=== PATIENT | female | born 1945 | race Caucasian/White ===

== ENCOUNTER → 2024-02-10 08:22 | Outpatient (REF) | payer MEDICARE, OTHER, SELFPAY | LOC: RCS 08:22 | PROVIDERS: ATTENDING PHYSICIAN Family Medicine | DX: R00.2 Palpitations (principal) | CPT/HCPCS: 93225; 93226 ==

== ENCOUNTER → 2024-03-16 09:10 | Outpatient (REF) | payer MEDICARE, OTHER, SELFPAY ==
[2024-03-16 10:07] LABS: % Basophils 0.7 % (0-2); % Eosinophils 3.3 % (0-6); % Immature Granulocytes 0.8 % (0-0.5); % Lymphocytes 34.8 % (20.5-51.1); % Monocytes 7.7 % (1.7-9.3); % Neutrophils 52.7 % (42.2-75.2); Absolute Basophils 0.1 10^3/uL (0-0.2); Absolute Eosinophils 0.2 10^3/uL (0-0.7); Absolute Immature Granulocytes 0.1 10^3/uL (0-0.05); Absolute Lymphocytes 2.5 10^3/uL (1.2-3.4); Absolute Monocytes 0.6 10^3/uL (0.1-0.6); Absolute Neutrophils 3.8 10^3/uL (1.4-6.5); Hematocrit 39.6 % (37.0-47.0); Mean Corp Hgb Conc. 32.8 g/dL (33.0-37.0); Mean Corpuscular Volume 88.2 fL (81.0-99.0); Mean Platelet Volume 10.6 fL (7.4-10.4); Nucleated Red Blood Cells % 0 %; Platelet Count 273 10^3/uL (130-400); Red Blood Cell Count 4.49 10^6/uL (4.20-5.40); White Blood Cell Count 7.2 10^3/uL (4.8-10.8)
[2024-03-16 10:45] LABS: ALT (SGPT) 17 U/L (0-35); AST (SGOT) 24 U/L (14-36); Albumin 4.3 g/dl (3.5-5.0); Alkaline Phosphatase 80 U/L (38-126); Blood Urea Nitrogen 18 mg/dl (7-17); Calcium 10.2 mg/dl (8.4-10.2); Carbon Dioxide 27 mmol/L (22-30); Chloride 108 mmol/L (98-107); Glucose 92 mg/dl (70-99); HDL Cholesterol 49 mg/dl; LDL Cholesterol, Calculated 108 mg/dl; Potassium 4.6 mmol/L (3.5-5.1); Sodium 141 mmol/L (135-145); Total Bilirubin 0.7 mg/dl (0.2-1.3); Total Cholesterol 191 mg/dl (50-199); Triglyceride 171 mg/dl (10-149); Very Low Density Lipoprotein 34 mg/dl (0-30); eGFR > 60.00
[2024-03-16 10:56] LABS: Vitamin D, 25-OH*** 28.8 ng/mL (30-80)
[2024-03-16 11:09] LABS: TSH 0.71 uIU/ml (0.47-4.68)
[2024-03-16 13:21] LABS: Glycohemoglobin (HgbA1c) 5.8 % (4.0-5.6)
== END ==
LOC: REG 09:10
PROVIDERS: ATTENDING PHYSICIAN Family Medicine; FAMILY PHYSICIAN Internal Medicine Cardiovascular Disease
DX: R73.03 Prediabetes (principal); E03.8 Other specified hypothyroidism; I11.9 Hypertensive heart disease without heart failure; E78.2 Mixed hyperlipidemia; E55.9 Vitamin D deficiency, unspecified
CPT/HCPCS: 36415; 80053; 80061; 82306; 83036; 84443; 85025

== ENCOUNTER → 2024-03-19 13:34 | Outpatient (REF) | payer MEDICARE, OTHER, SELFPAY | LOC: WDC 13:34 | PROVIDERS: ATTENDING PHYSICIAN Obstetrics & Gynecology Gynecology; FAMILY PHYSICIAN Family Medicine | DX: Z12.31 Encounter for screening mammogram for malignant neoplasm of breast (principal) | CPT/HCPCS: 77063; 77067 ==

== ENCOUNTER → 2024-05-31 09:25 | Outpatient (REF) | payer MEDICARE, OTHER, SELFPAY ==
[2024-05-31 12:11] LABS: ALT (SGPT) 29 U/L (0-35); AST (SGOT) 25 U/L (14-36); Albumin 4.6 g/dl (3.5-5.0); Alkaline Phosphatase 81 U/L (38-126); Blood Urea Nitrogen 20 mg/dl (7-17); Calcium 10.3 mg/dl (8.4-10.2); Carbon Dioxide 28 mmol/L (22-30); Chloride 103 mmol/L (98-107); Glucose 96 mg/dl (70-99); HDL Cholesterol 52 mg/dl; LDL Cholesterol, Calculated 134 mg/dl; Sodium 141 mmol/L (135-145); Total Bilirubin 0.8 mg/dl (0.2-1.3); Total Cholesterol 225 mg/dl (50-199); Total Protein 7.3 g/dl (6.3-8.2); Triglyceride 197 mg/dl (10-149); Very Low Density Lipoprotein 39 mg/dl (0-30); eGFR > 60.00
[2024-05-31 12:22] LABS: Vitamin D, 25-OH*** 45.3 ng/mL (30-80)
== END ==
LOC: REG 09:25
PROVIDERS: ATTENDING PHYSICIAN Family Medicine; REFERRING PHYSICIAN Internal Medicine Cardiovascular Disease
DX: E78.2 Mixed hyperlipidemia (principal); E55.9 Vitamin D deficiency, unspecified
CPT/HCPCS: 36415; 80053; 80061; 82306

== ENCOUNTER 2024-06-02 17:31 | Emergency (ER) | payer MEDICARE, OTHER, SELFPAY ==
[2024-06-02 17:36] VITALS: BP 127/71
--- NOTE | 2024-06-02 18:50 | ED.GENMED ---
History of Present Illness
<Hailey Rodríguez PA-C - Last Filed: 06/02/24 23:55>
General
Chief Complaint: Abdominal Symptoms
Source: patient
Exam Limitations: none
Time Seen by Provider: 06/02/24 18:44
Nursing documentation reviewed up to this point in time: agreed with
History of Present Illness
History of Present Illness:
Patient is a 78-year-old female with history of hypertension, hyperlipidemia presenting to the emergency department due to findings of diverticulitis seen on outpatient CT scan. Patient states she initially started with lower abdominal pain on
Thursday which has been relatively constant and worsening slightly since. She saw her primary care provider today where she referred her for an outpatient CAT scan and lab work. Patient was called back later today stating her CAT scan displayed
uncomplicated diverticulitis. Patient did have an elevated white count of 20,000 and PCP recommended patient be evaluated the emergency department. Patient denies any associated fever, chills, diarrhea, or constipation. No urinary symptoms.
Patient has felt nauseous although no episodes of vomiting.
Past History
<Hailey Rodríguez PA-C - Last Filed: 06/02/24 23:55>
Past History
ED Past Medical History: HTN, Hypercholesterolemia and Other (Cervical radiculopathy)
Social History
Tobacco: Non-smoker
Personal:
Review of Systems
<Hailey Rodríguez PA-C - Last Filed: 06/02/24 23:55>
Review of Systems
Allergies reviewed?: Yes
All Other Systems: ROS reviewed and negative except as documented in HPI and ROS
Phy Exam
<Hailey Rodríguez PA-C - Last Filed: 06/02/24 23:55>
Physical Exam
Physical Exam:
Vitals: Patient's vital signs are stable. Afebrile
General: Patient is well appearing, no acute distress. Nontoxic-appearing
Skin: Warm and dry, no rashes or lesions
Head: Normocephalic, atraumatic
Eyes: Sclera nonicteric. EOMs intact. No nystagmus.
Throat: Protecting airway
Neck: Normal ROM, no cervical spine tenderness, no meningismus
Cardiac: Regular rate and rhythm, no murmurs.
Pulm: Normal respiratory effort, no wheezes, rales, rhonchi heard on exam.
Abdomen: Abdomen soft. Mild abdominal tenderness in left lower quadrant. No rebound tenderness or guarding. No CVA tenderness
Extremities: No evidence of cyanosis or edema. Great distal pulses
Neuro: Grossly intact.
Psychiatric: Normal affect.
Course
<Hailey Rodríguez PA-C - Last Filed: 06/02/24 23:55>
Orders/Labs/Results
Orders:
Orders
06/02/24 19:01
Ondansetron Orally Disint [Zofran Odt (Orally Disintegrating)] 4 mg PO NOW STA
06/02/24 19:50
Piperacillin/Tazo 3.375 Gram [Zosyn] 3.375 gram in 50 ml IV NOW
Vital Signs
Initial and Last Documented VS:
Initial Vital Signs
Temp Pulse Resp BP Pulse Ox
98.0 F 102 16 127/71 98
06/02/24 17:36 06/02/24 17:36 06/02/24 17:36 06/02/24 17:36 06/02/24 17:36
Last Documented Vital Signs
Temp Pulse Resp BP Pulse Ox
98.0 F 90 17 127/63 96
06/02/24 17:36 06/02/24 20:31 06/02/24 20:31 06/02/24 20:31 06/02/24 20:31
<Adriano Gandhi DO - Last Filed: 06/03/24 03:12>
Orders/Labs/Results
Orders:
Orders
06/02/24 19:01
Ondansetron Orally Disint [Zofran Odt (Orally Disintegrating)] 4 mg PO NOW STA
06/02/24 19:50
Piperacillin/Tazo 3.375 Gram [Zosyn] 3.375 gram in 50 ml IV NOW
Vital Signs
Initial and Last Documented VS:
Initial Vital Signs
Temp Pulse Resp BP Pulse Ox
98.0 F 102 16 127/71 98
06/02/24 17:36 06/02/24 17:36 06/02/24 17:36 06/02/24 17:36 06/02/24 17:36
Last Documented Vital Signs
Temp Pulse Resp BP Pulse Ox
98.0 F 90 17 127/63 96
06/02/24 17:36 06/02/24 20:31 06/02/24 20:31 06/02/24 20:31 06/02/24 20:31
<Hailey Rodríguez PA-C - Last Filed: 06/02/24 23:55>
MDM/Problems Addressed
Differential Diagnosis Includes:
Not limited to: Acute diverticulitis, complicated diverticulitis including bowel perforation or abscess
MDM/Problems Addressed:
78-year-old female presenting due to diverticulitis found on outpatient CT scan and associated leukocytosis. Patient reports lower abdominal pain x 4 days with associated nausea. No fevers or vomiting. Patient very mildly tachycardic on initial
arrival to emergency department although heart rate normalized by my evaluation. Otherwise vital signs are stable. Patient is afebrile. Physical exam as above. Patient is very well-appearing, in no apparent distress. She is conversational and
nontoxic-appearing. Abdomen is soft with mild tenderness in left lower quadrant without rebound tenderness or guarding. Did review patient's lab work and CT performed today which showing uncomplicated diverticulitis. Despite patient's
leukocytosis -she is well-appearing with well-managed pain not requiring any pain management. She is afebrile with stable vital signs. No clear indication for admission for IV antibiotics. Shared decision making with patient. Will give 1 dose of
IV Zosyn in emergency department and then discharged home with p.o. Augmentin. Patient was given dose of oral Zofran emergency department due to nausea and tolerated water by mouth.
Stable for discharge with close return precautions. Recommend clear liquid diet and advancing as tolerated. Patient will follow with primary care next week. Patient seen with attending physician.
Chronic conditions affecting care:
Hypertension, diverticulosis
Acute Exacerbation and/or Progression of Chronic Illness:
Acute uncomplicated diverticulitis
<Hailey Rodríguez PA-C - Last Filed: 06/02/24 23:55>
*Pulse Oximetry
Patient hypoxic: no
*EKG
Interpreted by ED Provider?: NA
*[employer] Interpretation
Rate: normal
Interpretation: normal
Heart Rate: 92
Rhythm: sinus
*Critical Care Note
Total Time (30-74mins, 75-104mins- exclusive of procedures): Not Applicable
Data Reviewed
Review of Other/Old Records Reveals: Labs (CBC and CMP performed today outpatient which show a leukocytosis of 20.35. CMP without any clinically significant abnormalities) and Radiology Studies (CT abdomen pelvis performed today outpatient which
show acute uncomplicated diverticulitis of sigmoid colon.)
ED Attending Note
<Hailey Rodríguez PA-C - Last Filed: 06/02/24 23:55>
-
Portions of this chart may have been created with voice recognition software.� Occasional wrong word or��sound alike� substitutions may have occurred due to the inherent limitations of voice recognition software.
<Adriano Gandhi DO - Last Filed: 06/03/24 03:12>
ED Attending Note
Patient seen and examined by attending physician: Yes
I performed the substantive portion of visit, reviewed & personally made and approve the management plan that is documented in note by myself or ARELY.: Yes
ED Attending Note:
Outpatient management is reasonable for diverticulitis. Patient agrees to return for any worsening symptoms.
Discharge Plan
Departure
Patient Disposition: Home (Routine Discharge)
Date of Disposition: 06/02/24
Time of Disposition: 20:31
Patient with high blood pressure during this ER visit?: No
Condition: Good
Covid-19: Not Applicable
Discharge Problem:
Acute diverticulitis
Instructions: Low Fiber Diet, Diverticulitis (DC), Clear Liquid Diet
Prescriptions:
New
amoxicillin-pot clavulanate 875-125 mg tablet
1 tab PO BID 10 Days Qty: 20 0RF
ondansetron 4 mg tablet,disintegrating
4 mg PO Q8H PRN (Reason: nausea and vomiting) Qty: 10 0RF
No Action
cyanocobalamin (vitamin B-12) [Vitamin B-12] 1,000 mcg Tablet
1,000 mcg PO DAILY
levothyroxine [Synthroid] 88 mcg Tablet
88 mcg PO DAILY
simvastatin 20 mg Tablet
20 mg PO HS
losartan 25 mg Tablet
25 mg PO HS
PreserVision AREDS-2 250-90-40-1 mg Capsule
1 tab PO BID
metoprolol succinate 25 mg Tablet Extended Release 24 Hr
25 mg PO HS
coenzyme Q10 [CoQ-10] 100 mg Capsule
100 mg PO DAILY
Systane (PF) 0.4-0.3 % Dropperette
1 drp BOTH EYES Q6HPRN PRN (Reason: dry eyes)
cholecalciferol (vitamin D3) [Vitamin D3] 25 mcg (1,000 unit) Tablet
1,500 unit PO DAILY
magnesium oxide 400 mg magnesium Tablet
400 mg PO DAILY
Referrals:
Inez Serra MD [Family Provider] - Follow up in 5-7 days
Activity Restrictions/Additional Instructions:
Return to the emergency department with any fevers, chills, worsening abdominal pain, intractable nausea/vomiting, intractable pain, worsening in current symptoms, or any other concerns
-A prescription has been sent to your pharmacy for an antibiotic. You should take this twice a day for the next 10 days. You should start this in the morning. You can take Zofran up to every 8 hours as needed for persistent nausea/vomiting.
-You can take Tylenol and/or Motrin as needed for any pain.
-It is important to stay well-hydrated. You should follow a clear liquid diet for the next 2 days and slowly advance to low fiber as tolerated.
-Follow-up with your primary care within the week for further evaluation/management
Monitor your symptoms closely and return to the emergency department any acute worsening/new symptoms or signs of worsening infection
Interventions
Interventions:
*General Assessment Last Done: 06/02/24 19:23
ED- Fall Risk Assessment Last Done: 06/02/24 19:22
*Nursing Disposition Last Done: 06/02/24 20:34
MD-Gisjjp-Olmfinjkdw Assessment Last Done: 06/02/24 19:22
Discharge Date and Time
Discharge Date/Time: 06/02/24 21:06
Print Language: SOUTH AFR[place]
[2024-06-02] MEDS: ZOFRAN ODT (ORALLY DISINTEGRATING) 4 MG PO (19:14)
[2024-06-02 19:21] VITALS: BP 127/63
[2024-06-02] MEDS: ZOSYN 50 IV (20:06)
[2024-06-02 20:31] VITALS: BP 127/63
== END 2024-06-02 21:06 | disposition home or self-care (01) ==
LOC: EMR 17:31
PROVIDERS: EMERGENCY PHYSICIAN Emergency Medicine; FAMILY PHYSICIAN Family Medicine
DX: K57.32 Diverticulitis of large intestine without perforation or abscess without bleeding (principal); I10 Essential (primary) hypertension; E78.5 Hyperlipidemia, unspecified
CPT/HCPCS: 96374; 99284; 36415; 74177; 80053; 83970; 85025; Q9967

== ENCOUNTER → 2024-06-10 12:01 | Outpatient (REF) | payer MEDICARE, OTHER, SELFPAY | LOC: REG 12:01 | PROVIDERS: ATTENDING PHYSICIAN Nurse Practitioner; FAMILY PHYSICIAN Family Medicine | DX: R19.5 Other fecal abnormalities (principal) | CPT/HCPCS: 87324; 87449 ==

== ENCOUNTER → 2024-07-08 10:04 | Outpatient (REF) | payer MEDICARE, OTHER, SELFPAY ==
[2024-07-08 11:29] LABS: % Basophils 0.6 % (0-2); % Eosinophils 2.7 % (0-6); % Immature Granulocytes 0.6 % (0-0.5); % Lymphocytes 17.4 % (20.5-51.1); % Monocytes 7.1 % (1.7-9.3); % Neutrophils 71.6 % (42.2-75.2); Absolute Eosinophils 0.1 10^3/uL (0-0.7); Absolute Lymphocytes 0.9 10^3/uL (1.2-3.4); Absolute Monocytes 0.4 10^3/uL (0.1-0.6); Absolute Neutrophils 3.7 10^3/uL (1.4-6.5); Hematocrit 38.8 % (37.0-47.0); Hemoglobin 12.4 g/dL (12.0-16.0); Mean Corpuscular Hgb 29.7 pg (27.0-31.0); Mean Corpuscular Volume 92.8 fL (81.0-99.0); Mean Platelet Volume 11.6 fL (7.4-10.4); Nucleated Red Blood Cells % 0 %; Platelet Count 240 10^3/uL (130-400); Red Blood Cell Count 4.18 10^6/uL (4.20-5.40); Red Cell Dist. Width 13.2 % (11.5-14.5); White Blood Cell Count 5.2 10^3/uL (4.8-10.8)
== END ==
LOC: REG 10:04
PROVIDERS: ATTENDING PHYSICIAN Family Medicine
DX: K57.92 Diverticulitis of intestine, part unspecified, without perforation or abscess without bleeding (principal)
CPT/HCPCS: 36415; 85025

== ENCOUNTER → 2024-07-11 17:17 | Outpatient (REF) | payer MEDICARE, OTHER, SELFPAY | LOC: MRI 3T 17:17 | PROVIDERS: ATTENDING PHYSICIAN Nurse Practitioner; FAMILY PHYSICIAN Family Medicine | DX: R93.5 Abnormal findings on diagnostic imaging of other abdominal regions, including retroperitoneum (principal) | CPT/HCPCS: 74183; A9575 ==

== ENCOUNTER → 2024-08-11 06:16 | Day surgery (SDC) | payer MEDICARE, OTHER, SELFPAY | LOC: GI 06:16 | PROVIDERS: ATTENDING PHYSICIAN Specialist | DX: K57.30 Diverticulosis of large intestine without perforation or abscess without bleeding (principal); Z87.19 Personal history of other diseases of the digestive system | CPT/HCPCS: 45378 ==

== ENCOUNTER 2024-09-07 06:12 | Day surgery (SDC) | payer MEDICARE, OTHER, SELFPAY ==
[2024-09-07 07:33] VITALS: BMI 28.8
[2024-09-07 07:42] VITALS: BMI 28.8
[2024-09-07 10:11] VITALS: BP 141/65
[2024-09-07 10:15] VITALS: BP 132/63
[2024-09-07 10:30] VITALS: BP 132/58
[2024-09-07 10:46] VITALS: BP 148/69
== END 2024-09-07 11:49 | disposition home or self-care (01) ==
LOC: GI 06:12
PROVIDERS: ATTENDING PHYSICIAN Internal Medicine Gastroenterology
DX: C49.A2 Gastrointestinal stromal tumor of stomach (principal); K20.90 Esophagitis, unspecified without bleeding; D17.5 Benign lipomatous neoplasm of intra-abdominal organs; K31.89 Other diseases of stomach and duodenum; R93.3 Abnormal findings on diagnostic imaging of other parts of digestive tract
CPT/HCPCS: 43238; 43239; 88172; 88173; 88305; 88341; 88342; 88360

== ENCOUNTER → 2024-12-07 08:33 | Outpatient (REF) | payer MEDICARE, OTHER, SELFPAY | LOC: RAD 08:33 | PROVIDERS: ATTENDING PHYSICIAN Internal Medicine Rheumatology; FAMILY PHYSICIAN Family Medicine | DX: M81.0 Age-related osteoporosis without current pathological fracture (principal); Z13.820 Encounter for screening for osteoporosis | CPT/HCPCS: 77080 ==

== ENCOUNTER → 2024-12-27 09:21 | Outpatient (REF) | payer MEDICARE, OTHER, SELFPAY ==
[2024-12-27 10:26] LABS: % Basophils 0.5 % (0-2); % Eosinophils 1.9 % (0-6); % Immature Granulocytes 0.5 % (0-0.5); % Lymphocytes 28.7 % (20.5-51.1); % Monocytes 8.8 % (1.7-9.3); % Neutrophils 59.6 % (42.2-75.2); Absolute Eosinophils 0.1 10^3/uL (0-0.7); Absolute Lymphocytes 2.2 10^3/uL (1.2-3.4); Absolute Monocytes 0.7 10^3/uL (0.1-0.6); Absolute Neutrophils 4.5 10^3/uL (1.4-6.5); Hematocrit 39.9 % (37.0-47.0); Hemoglobin 12.8 g/dL (12.0-16.0); Mean Corp Hgb Conc. 32.1 g/dL (33.0-37.0); Mean Corpuscular Volume 90.3 fL (81.0-99.0); Mean Platelet Volume 10.7 fL (7.4-10.4); Nucleated Red Blood Cells % 0 %; Platelet Count 273 10^3/uL (130-400); Red Blood Cell Count 4.42 10^6/uL (4.20-5.40); Red Cell Dist. Width 13.2 % (11.5-14.5); White Blood Cell Count 7.5 10^3/uL (4.8-10.8)
[2024-12-27 11:06] LABS: ALT (SGPT) 16 U/L (0-35); AST (SGOT) 21 U/L (14-36); Albumin 4.2 g/dl (3.5-5.0); Alkaline Phosphatase 78 U/L (38-126); Blood Urea Nitrogen 14 mg/dl (7-17); Calcium 9.9 mg/dl (8.4-10.2); Carbon Dioxide 28 mmol/L (22-30); Chloride 106 mmol/L (98-107); Glucose 102 mg/dl (70-99); Potassium 4.6 mmol/L (3.5-5.1); Sodium 142 mmol/L (135-145); Total Bilirubin 0.9 mg/dl (0.2-1.3); eGFR > 60.00
== END ==
LOC: REG 09:21
PROVIDERS: ATTENDING PHYSICIAN Internal Medicine Rheumatology; FAMILY PHYSICIAN Family Medicine; OTHER PHYSICIAN Internal Medicine Endocrinology, Diabetes & Metabolism
DX: E06.3 Autoimmune thyroiditis (principal); H04.123 Dry eye syndrome of bilateral lacrimal glands; M54.50 Low back pain, unspecified; M70.61 Trochanteric bursitis, right hip; M79.7 Fibromyalgia; M81.0 Age-related osteoporosis without current pathological fracture; Z51.81 Encounter for therapeutic drug level monitoring
CPT/HCPCS: 36415; 80053; 85025

== ENCOUNTER → 2025-01-30 11:23 | Outpatient (REF) | payer MEDICARE, OTHER, SELFPAY | LOC: DHSLP 11:23 | PROVIDERS: ATTENDING PHYSICIAN Internal Medicine Critical Care Medicine; FAMILY PHYSICIAN Family Medicine | DX: G47.33 Obstructive sleep apnea (adult) (pediatric) (principal) | CPT/HCPCS: 95800 ==

== ENCOUNTER → 2025-02-06 09:16 | Outpatient (REF) | payer MEDICARE, OTHER, SELFPAY ==
[2025-02-06 10:28] LABS: % Basophils 0.9 % (0-2); % Eosinophils 1.6 % (0-6); % Immature Granulocytes 0.5 % (0-0.5); % Lymphocytes 35.6 % (20.5-51.1); % Monocytes 6.7 % (1.7-9.3); % Neutrophils 54.7 % (42.2-75.2); Absolute Basophils 0.1 10^3/uL (0-0.2); Absolute Eosinophils 0.1 10^3/uL (0-0.7); Absolute Lymphocytes 2.7 10^3/uL (1.2-3.4); Absolute Monocytes 0.5 10^3/uL (0.1-0.6); Absolute Neutrophils 4.1 10^3/uL (1.4-6.5); Hematocrit 42.3 % (37.0-47.0); Hemoglobin 13.3 g/dL (12.0-16.0); Mean Corp Hgb Conc. 31.4 g/dL (33.0-37.0); Mean Corpuscular Hgb 28.5 pg (27.0-31.0); Mean Corpuscular Volume 90.8 fL (81.0-99.0); Mean Platelet Volume 10.5 fL (7.4-10.4); Nucleated Red Blood Cells % 0 %; Platelet Count 335 10^3/uL (130-400); Red Blood Cell Count 4.66 10^6/uL (4.20-5.40); Red Cell Dist. Width 13.5 % (11.5-14.5); White Blood Cell Count 7.6 10^3/uL (4.8-10.8)
[2025-02-06 11:00] LABS: ALT (SGPT) 15 U/L (0-35); AST (SGOT) 18 U/L (14-36); Albumin 4.3 g/dl (3.5-5.0); Alkaline Phosphatase 72 U/L (38-126); Blood Urea Nitrogen 17 mg/dl (7-17); Calcium 9.9 mg/dl (8.4-10.2); Carbon Dioxide 29 mmol/L (22-30); Chloride 105 mmol/L (98-107); Glucose 108 mg/dl (70-99); HDL Cholesterol 53 mg/dl; LDL Cholesterol, Calculated 104 mg/dl; Magnesium 2.2 mg/dl (1.6-2.3); Sodium 142 mmol/L (135-145); Total Bilirubin 0.7 mg/dl (0.2-1.3); Total Cholesterol 192 mg/dl (50-199); Total Protein 7.4 g/dl (6.3-8.2); Triglyceride 175 mg/dl (10-149); Very Low Density Lipoprotein 35 mg/dl (0-30); eGFR > 60.00
[2025-02-06 11:14] LABS: Vitamin D, 25-OH*** 37.1 ng/mL (30-80)
[2025-02-06 12:12] LABS: Glycohemoglobin (HgbA1c) 5.9 % (4.0-5.6)
[2025-02-07 17:00] LABS: Intact PTH 32.5 pg/ml (13.6-85.8)
== END ==
LOC: REG 09:16
PROVIDERS: ATTENDING PHYSICIAN Family Medicine; OTHER PHYSICIAN Internal Medicine Cardiovascular Disease; OTHER PHYSICIAN Internal Medicine Endocrinology, Diabetes & Metabolism
DX: I11.9 Hypertensive heart disease without heart failure (principal); R73.03 Prediabetes; E03.8 Other specified hypothyroidism; E55.9 Vitamin D deficiency, unspecified; E66.3 Overweight; Z79.899 Other long term (current) drug therapy
CPT/HCPCS: 36415; 80053; 80061; 82306; 83036; 83735; 83970; 84443; 85025

== ENCOUNTER → 2025-03-12 07:21 | Outpatient (REF) | payer MEDICARE, OTHER, SELFPAY | LOC: PAVMRI 07:21 | PROVIDERS: ATTENDING PHYSICIAN Student in an Organized Health Care Education/Training Program; FAMILY PHYSICIAN Family Medicine | DX: S93.402A Sprain of unspecified ligament of left ankle, initial encounter (principal) | CPT/HCPCS: 73721 ==

== ENCOUNTER → 2025-03-20 15:22 | Outpatient (REF) | payer MEDICARE, OTHER, SELFPAY | LOC: WDC 15:22 | PROVIDERS: ATTENDING PHYSICIAN Nurse Practitioner Adult Health; FAMILY PHYSICIAN Family Medicine | DX: Z12.31 Encounter for screening mammogram for malignant neoplasm of breast (principal) | CPT/HCPCS: 77063; 77067 ==

== ENCOUNTER → 2025-07-20 08:58 | Outpatient (REF) | payer MEDICARE, OTHER, SELFPAY ==
[2025-07-20 12:38] LABS: Magnesium 2.1 mg/dl (1.6-2.3); Uric Acid 6.2 mg/dl (2.5-6.2)
[2025-07-20 12:52] LABS: Vitamin D, 25-OH*** 39.7 ng/mL (30-80)
[2025-07-20 13:05] LABS: TSH 7.42 uIU/ml (0.47-4.68)
[2025-07-20 13:10] LABS: Hematocrit 40.2 % (37.0-47.0); Hemoglobin 12.8 g/dL (12.0-16.0); Mean Corp Hgb Conc. 31.8 g/dL (33.0-37.0); Mean Corpuscular Volume 90.1 fL (81.0-99.0); Nucleated Red Blood Cells % 0 %; Platelet Count 310 10^3/uL (130-400); Red Cell Dist. Width 13.2 % (11.5-14.5)
[2025-07-20 13:25] LABS: Vitamin B12 524 pg/ml (239-931)
[2025-07-20 13:26] LABS: Glycohemoglobin (HgbA1c) 6.1 % (4.0-5.9)
[2025-07-21 10:05] LABS: CRP, Ultra Sensitive 3.53 mg/L (0.30-5.00)
[2025-07-23 10:18] LABS: Lipoprotein a (Lp a) 25 mg/dL (<=29)
== END ==
LOC: HWLAB 08:58
PROVIDERS: ATTENDING PHYSICIAN Internal Medicine; FAMILY PHYSICIAN Family Medicine
DX: E66.09 Other obesity due to excess calories (principal); E06.3 Autoimmune thyroiditis; E78.2 Mixed hyperlipidemia; E55.9 Vitamin D deficiency, unspecified; R20.0 Anesthesia of skin; R73.03 Prediabetes; E88.810 Metabolic syndrome; G47.33 Obstructive sleep apnea (adult) (pediatric)
CPT/HCPCS: 36415; 80061; 82306; 82607; 83036; 83525; 83695; 83704; 83735; 84439; 84443; 84550; 85025; 86141

== ENCOUNTER 2025-08-15 08:31 | Emergency (ER) | payer MEDICARE, OTHER, SELFPAY ==
[2025-08-15 08:39] VITALS: BP 165/77
--- NOTE | 2025-08-15 10:02 | ED.MUSCINJ ---
HPI-Injury
General
Chief Complaint: Musculo-Skeletal Complaint
Source: patient
Exam Limitations: none
Time Seen by Provider: 08/15/25 09:32
History of Present Illness-Injury
Initial Injury comments:
80-year-old female presents with relatively atraumatic pain and swelling to the left knee and behind the left knee. This has been present for several days. This is keeping her awake at night. She notes a flying to [employer] a month ago and was
walking up and down hills and she walked around [place] a week ago. She is also dealing with an ankle sprain to the left ankle as well. No chest pain is of breath. No fever. No other complaints
Past History
Past History
ED Past Medical History: HTN, Hypercholesterolemia and Other (Cervical radiculopathy)
Social History
Tobacco: Non-smoker
Personal:
Phy Exam
Physical Exam
Physical Exam:
General: Well-appearing female no acute respiratory distress
HEENT normal cephalic atraumatic
Musculoskeletal exam: Left knee with moderate effusion she is tender over the posterior medial joint line. She has good range of motion. Ligament exam is stable
Vascular: 2+ DP pulse left foot no calf tenderness
Injury Course
Orders/Labs/Results
Orders:
Orders
08/15/25 08:42
Knee, Left 4 or More Views [CR Knee - Left 4 Or More View*] Urgent
Comment:
Reason For Exam: pain swelling
08/15/25 09:57
Venous Doppler Lwr Ext Left [US Periph Venous LOWER Ext LT] Urgent
Comment:
Reason For Exam: pain behind knee
MDM/Problems Addressed
Differential Diagnosis Includes:
Left knee discomfort atraumatic in nature. Consider degenerative change versus DVT. No sign to suggest septic arthritis.
*Pulse Oximetry
SaO2: 98
Oxygen Mode of Delivery: Room air
Patient hypoxic: no
*Critical Care Note
Total Time (30-74mins, 75-104mins- exclusive of procedures): Not Applicable
Update Note
Update Note:
Ultrasound negative for DVT. Patient reassured. I suspect this is primarily osteoarthritis in the knee. She has an appoint with orthopedics in 2 days. Do not suspect septic arthritis. Recommended anti-inflammatories
ED Attending Note
-
Portions of this chart may have been created with voice recognition software.� Occasional wrong word or��sound alike� substitutions may have occurred due to the inherent limitations of voice recognition software.
Discharge Plan
Departure
Patient Disposition: Home (Routine Discharge)
Date of Disposition: 08/15/25
Time of Disposition: 12:30
Patient with high blood pressure during this ER visit?: No
Discharge Problem:
Acute knee pain
Instructions: Muscle and Bone Pain (DC)
Prescriptions:
No Action
cyanocobalamin (vitamin B-12) [Vitamin B-12] 1,000 mcg Tablet
1,000 mcg PO DAILY
levothyroxine [Synthroid] 88 mcg Tablet
88 mcg PO DAILY
simvastatin 20 mg Tablet
20 mg PO HS
losartan 25 mg Tablet
25 mg PO HS
PreserVision AREDS-2 250-90-40-1 mg Capsule
1 tab PO BID
metoprolol succinate 25 mg Tablet Extended Release 24 Hr
25 mg PO HS
coenzyme Q10 [CoQ-10] 100 mg Capsule
100 mg PO DAILY
Systane (PF) 0.4-0.3 % Dropperette
1 drp BOTH EYES Q6HPRN PRN (Reason: dry eyes)
cholecalciferol (vitamin D3) [Vitamin D3] 25 mcg (1,000 unit) Tablet
1,500 unit PO DAILY
vitamin E
1,000 mg PO DAILY
pentoxifylline
400 mg PO BID
calcium
800 mg PO DAILY
5x Align Probiotic
17.5 mg PO DAILY
Referrals:
Inez Serra MD [Family Provider, Family Practice]
Activity Restrictions/Additional Instructions:
Follow-up with orthopedics as planned. Continue anti-inflammatories. Return if needed otherwise.
Interventions
Interventions:
*Risk Screen - Suicide Last Done: 08/15/25 08:39
*General Assessment Last Done: 08/15/25 09:21
*Neglect/Abuse Screening Last Done: 08/15/25 08:39
*ED- Fall Risk Assessment Last Done: 08/15/25 09:21
*ED COVID-19 Vaccine History Last Done: 08/15/25 09:21
*ED Influenza Vaccine History Last Done: 08/15/25 09:21
ED-Musculoskeletal Assessment Last Done: 08/15/25 09:21
Discharge Date and Time
Print Language: [id number]
== END 2025-08-15 12:52 | disposition home or self-care (01) ==
LOC: EMR 08:31
PROVIDERS: EMERGENCY PHYSICIAN Emergency Medicine; FAMILY PHYSICIAN Family Medicine
DX: M25.562 Pain in left knee (principal); I10 Essential (primary) hypertension; E78.00 Pure hypercholesterolemia, unspecified; M54.10 Radiculopathy, site unspecified; M79.662 Pain in left lower leg; R22.42 Localized swelling, mass and lump, left lower limb
CPT/HCPCS: 73564; 93971; 99284

== ENCOUNTER → 2025-09-14 10:04 | Outpatient (REF) | payer MEDICARE, OTHER, SELFPAY ==
[2025-09-14 12:04] LABS: TSH 0.07 uIU/ml (0.47-4.68)
== END ==
LOC: REG 10:04
PROVIDERS: ATTENDING PHYSICIAN Internal Medicine Endocrinology, Diabetes & Metabolism; FAMILY PHYSICIAN Family Medicine
DX: E03.9 Hypothyroidism, unspecified (principal)
CPT/HCPCS: 36415; 84439; 84443